=== PATIENT | male | born 1985 | race Caucasian/White ===

== ENCOUNTER 2025-04-05 14:01 | Emergency (ER) | payer BC, OTHER ==
[2025-04-05] MEDS: Diphtheria,Pertussis(Acell),Tetanus Vaccine 0.5 ML Syringe IM ONE (14:49)
== END 2025-04-05 15:00 | disposition home or self-care (01) ==
LOC: LL.ED 14:01
DX: S67.01XA Crushing injury of right thumb, initial encounter (principal); Z23 Encounter for immunization; Z79.899 Other long term (current) drug therapy; W23.1XXA Caught, crushed, jammed, or pinched between stationary objects, initial encounter; Y93.89 Activity, other specified
CPT/HCPCS: 12042; 73140-F5; 90471; 90715; 99283-25; J2003